=== PATIENT | male | born 1965 | race African-American/Black ===

== ENCOUNTER 2016-09-03 09:13 | Day surgery (SDC) | payer OTHER ==
[2016-09-03] MEDS ORDERED: NACL 0.9% 1000 ML 1,000 ML ONE (09:44)
--- NOTE | 2016-09-03 10:18 | Anesthesia Consultation ---
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
--- NOTE | 2016-09-03 10:18 | Anesthesia Day of Surgery ---
Anesthesia Day of Surgery - Day of Surgery Patient Examined: Yes Patient H&P Reviewed: Yes Patient is NPO: Yes
[2016-09-03] MEDS ORDERED: NACL 0.9% 1000 ML 1,000 ML IV SCH (11:00)
[2016-09-03] MEDS ORDERED: DIPRIVAN 10 MG/ML IV ONE ×2 (11:34)
[2016-09-03] MEDS ORDERED: WATER FOR IRRIG STERILE IR ONE (12:26)
--- NOTE | 2016-09-03 13:16 | Discharge Summary ---
Short Stay Discharge Plan Activity: advance as tolerated Weight Bearing Status: Weight Bear as Tolerated Diet: regular
--- NOTE | 2016-09-03 13:16 | Operative Report ---
Operative Report Operative Report: Date of procedure: 09/03/2016 Procedure: Colonoscopy with Hot Biopsy Polypectomy, Multiple Cold Biopsies and Hemoclip Application. Attending physician: Fernie Wright MD Tool Radial Drill Press Set Up Operator: Fernie Wright MD Indication: Patient is a 51-year-old male who presents for screening colonoscopy. A colonoscopy service to evaluate patient for colorectal cancer screening. Consent: Informed consent was obtained after advising the patient and family regarding nature of this procedure, its indications, potential benefits as well as possible complications including but not limited to bleeding perforation and adverse reaction to medication, infection as well as other cardiopulmonary complications. An informed written and verbal consent was then obtained after due opportunity was provided for questions and answers. Monitoring: Patient was monitored continuously with pulse oximetry and electrocardiographic recordings as well as blood pressure recordings. Vital signs remained stable throughout this procedure with no untoward events. Preoperative assessment: Patient was assessed immediately prior to this procedure for capacity to tolerate monitored anesthesia care and moderate sedation as well as general anesthesia. Patient's ASA classification is 2, Mallampati class is 2, Hyomental distance is 3. Instrument: [employer] video colonoscope Medications: Propofol given intravenously in divided doses. For details please refer to anesthesia records. Description of procedure: Patient was placed in the left lateral decubitus position after achieving sedation, a digital rectal examination was performed following which the colonoscope was introduced into the anal verge and advanced to the cecum which was identified by the cecal valve, the appendiceal orifice, as well as by the cecal strap and direct transillumination. The colonoscope was subsequently withdrawn with careful inspection of all mucosal surfaces. Patient tolerated this procedure well and was subsequently taken to the recovery room. The following findings were noted. Findings: The ileocecal valve was prominent. One lip of the ileocecal valve appeared very prominent. It was biopsied. There was a diminutive 4 mm sessile polyp in the cecum which was removed by hot biopsy polypectomy and retrieved. A Hemoclip was applied over the polypectomy site. There were scattered diverticula in the descending colon and sigmoid colon . The rest of the colon was normal. On the retroflex view at the anal verge, patient had internal hemorrhoids. Impression: Prominent Ileocecal valve, status post biopsies. Diminutive cecal polyp status post hot biopsy polypectomy and retrieval. Diverticular disease of the colon. Internal hemorrhoids. Plan: Follow pathology report. If the ileocecal valve prominence shows tubular adenoma, patient will need a limited resection of the ileocecal valve given that the this area was prominent and occupied more than half of the valve. If however the biopsy is unremarkable then we could be assume this to be an anatomic anomaly. Also follow pathology report from the cecal polyp. High-fiber diet. Repeat colonoscopy in 5 years, if there is no evidence of a neoplasm.
--- NOTE | 2016-09-03 13:28 | Post Anesthesia Evaluation ---
- Post Anesthesia Evaluation Patient Participated: Yes Airway Patent: Yes Stable Respiratory Function: Yes Temp > 96.8F: Yes Pain Manageable: Yes Adequeate Hydration: Yes Anesthesia Complications: No Block Receding Appropriately: Not Applicable
[2016-09-03 13:37] VITALS: BP 104/64
== END 2016-09-03 09:14 | disposition home or self-care (01) ==
LOC: GIO 09:13
PROVIDERS: ATTEND Internal Medicine Gastroenterology
DX: Z12.11 Encounter for screening for malignant neoplasm of colon (principal); D12.0 Benign neoplasm of cecum; K57.30 Diverticulosis of large intestine without perforation or abscess without bleeding; K64.8 Other hemorrhoids; K63.89 Other specified diseases of intestine; I10 Essential (primary) hypertension; E03.9 Hypothyroidism, unspecified; K21.9 Gastro-esophageal reflux disease without esophagitis; F10.21 Alcohol dependence, in remission; Z98.890 Other specified postprocedural states; Z79.899 Other long term (current) drug therapy; Z87.891 Personal history of nicotine dependence
CPT/HCPCS: 45380; 45384; 88304; 88305; J2704; J7030